=== PATIENT | female | born 1990 | race Caucasian/White ===

== ENCOUNTER 2018-07-29 10:53 | Emergency (ER) | END 2018-07-29 13:44 | disposition home or self-care (01) ==

== ENCOUNTER 2018-10-06 23:06 | Emergency (ER) | payer BC ==
[~2018-10-06] VITALS: Ht 142.2 cm; Wt 42.9 kg
[~2018-10-06 23:06] MED LIST: NO MEDS
[2018-10-06 23:09] VITALS: Ht 142.2 cm; Wt 42.9 kg
[2018-10-06] MEDS ORDERED: SOD CHLORIDE 0.9% 1,000 ML IV STA (23:48)
[2018-10-07] MEDS ORDERED: LORAZEPAM 2 MG INJ IV ONE
[2018-10-07] MEDS ORDERED: LORA-441 PO (01:35)
--- NOTE | 2018-10-07 01:40 | ERD ---
ER Documentation Chief Complaint Chief Complaint CHEST PAIN WITH PALPITATIONS; AWOKEN BY IT [id number] AGO HPI This is a 28-year-old female chest pain or palpitations. She said he was awoken by Royer severely fast heart rate. She also noticed clamminess of her hands and perioral numbness. No fevers no chills. No nausea no vomiting. Chest pain is mild to moderate electric-like across her entire chest wall with no exacerbating alleviating factors ROS All systems reviewed and are negative except as per history of present illness. Medications Home Meds Active Scripts Lorazepam* (Ativan*) 0.5 Mg Tablet, 0.5 MG PO Q8H PRN for ANXIETY, #10 TAB Prov:ELIZABETH DUBOIS 10/07/18 Reported Medications [No Meds] No Conflict Check 10/21/10 Allergies Allergies: Coded Allergies: No Known Drug Allergies (Verified Allergy, Mild, 10/21/10) PMhx/Soc Medical and Surgical Hx: pt denies Medical Hx, pt denies Surgical Hx History of Surgery: No Anesthesia Reaction: No Hx Neurological Disorder: No Hx Respiratory Disorders: No Hx Cardiac Disorders: No Hx Psychiatric Problems: No Hx Miscellaneous Medical Probl: No Hx Alcohol Use: Yes (occasional use) Hx Substance Use: No Hx Tobacco Use: No Smoking Status: Never smoker Physical Exam Vitals Vital Signs Date Temp Pulse Resp B/P (MAP) Pulse Ox O2 O2 Flow FiO2 Time Delivery Rate 10/07/18 96 18 142/105 100 Room Air 00:20 (117) 10/06/18 97.7 118 19 179/101 98 23:09 (127) Physical Exam Const: No acute distress Head: Atraumatic Eyes: Normal Conjunctiva ENT: Normal External Ears, Nose and Mouth. Neck: Full range of motion. No meningismus. Resp: Clear to auscultation bilaterally Cardio: Regular rate and rhythm, no murmurs Abd: Soft, non tender, non distended. Normal bowel sounds Skin: No petechiae or rashes Back: No midline or flank tenderness Ext: No cyanosis, or edema Neur: Awake and alert Psych: Normal Mood and Affect Result Diagram: 10/07/18 0000 10/07/18 0000 Results 24 hrs Laboratory Tests Test 10/07/18 00:00 10/07/18 00:05 10/07/18 00:12 White Blood Count 7.0 10^3/ul Red Blood Count 5.00 10^6/ul Hemoglobin 14.1 g/dl Hematocrit 42.6 % Mean Corpuscular Volume 85.2 fl Mean Corpuscular Hemoglobin 28.2 pg Mean Corpuscular 33.1 g/dl Hemoglobin Concent Red Cell Distribution Width 12.1 % Platelet Count 229 10^3/UL Mean Platelet Volume 9.5 fl Immature Granulocytes % 0.300 % Neutrophils % 60.6 % Lymphocytes % 31.9 % Monocytes % 5.7 % Eosinophils % 1.1 % Basophils % 0.4 % Nucleated Red Blood Cells % 0.0 /100WBC Immature Granulocytes # 0.020 10^3/ul Neutrophils # 4.2 10^3/ul Lymphocytes # 2.2 10^3/ul Monocytes # 0.4 10^3/ul Eosinophils # 0.1 10^3/ul Basophils # 0.0 10^3/ul Nucleated Red Blood Cells # 0.0 10^3/ul Sodium Level 143 mmol/L Potassium Level 3.7 mmol/L Chloride Level 101 mmol/L Carbon Dioxide Level 29 mmol/L Anion Gap 13 Blood Urea Nitrogen 18 mg/dl Creatinine 0.69 mg/dl Est Glomerular Filtrat > 60 mL/min Rate mL/min Glucose Level 121 mg/dl Calcium Level 9.9 mg/dl Total Bilirubin 0.3 mg/dl Direct Bilirubin 0.00 mg/dl Indirect Bilirubin 0.3 mg/dl Aspartate Amino Transf (AST/SGOT) 23 IU/L Alanine 19 IU/L Aminotransferase (ALT/SGPT) Alkaline Phosphatase 51 IU/L Troponin I < 0.012 ng/ml B-Type Natriuretic Peptide 25 PG/ML Total Protein 8.0 g/dl Albumin 4.9 g/dl Globulin 3.10 g/dl Albumin/Globulin Ratio 1.58 Thyroid Stimulating Hormone (TSH) 1.770 MIU/L Free Thyroxine Index 3.52 ug/ml Thyroxine (T4) 10.2 ug/dl Triiodothyronine (T3) Uptake 34.5 % Urine Color STRAW Urine Clarity CLEAR Urine pH 7.0 Urine Specific [place] 1.010 Urine Ketones NEGATIVE mg/dL Urine Nitrite NEGATIVE mg/dL Urine Bilirubin NEGATIVE mg/dL Urine Urobilinogen NEGATIVE mg/dL Urine Leukocyte Esterase NEGATIVE Rob/ul Urine Hemoglobin NEGATIVE mg/dL Urine Glucose NEGATIVE mg/dL Urine Total Protein NEGATIVE mg/dl POC Beta HCG, Qualitative NEGATIVE Current Medications Medications Dose Sig/Norma Start Time Status Last (Trade) Ordered Route PRN Stop Time Admin Dose Reason Admin Sodium 1,000 ml @ Q1H STAT 10/06/18 DC 10/07/18 Chloride 1,000 mls/hr IV 23:48 10/07/18 00:14 00:47 Lorazepam 1 mg ONCE ONCE 10/07/18 DC 10/07/18 (Ativan) IV 00:00 10/07/18 00:15 00:01 Procedures/MDM EKG: Rate/Rhythm: [Normal Sinus Rhythm] QRS, ST, T-waves: [No changes consistent w/ acute ischemia] Impression: [No evidence of ischemia or arrhythmia] Chest X-ray 1V Interpreted by me: Soft Tissue: No acute abnormalitie s Bones: No acute abnormalities Mediastinum/Cardiac Silhouette/Lungs: [No acute abnormalities] Medical decision making: Patient's thoracic symptoms have stabilized while in the department and are stable for outpatient follow up. Exam and work up not consistent w/ ischemia, arrhythmia, PE or dissection. Departure Diagnosis: Primary Impression: Palpitations Condition: Stable Patient Instructions: Palpitations Referrals: CHACE RODNEY MD (PCP) ELIZABETH DUBOIS Oct 07, 2018 01:39
[2018-10-07 03:14] VITALS: BP 105/63; PULSE 88; RESP 18
== END 2018-10-07 03:23 | disposition home or self-care (01) ==
LOC: E/R 23:06
DX: R00.2 Palpitations (principal)
CPT/HCPCS: 36415; 71045; 80053; 81003; 81025; 83880; 84436; 84443; 84479; 84484; 85025; 93005; 96374; J2060; J7030; Z7502

== ENCOUNTER 2018-11-21 13:13 | Emergency (ER) | payer BC ==
[~2018-11-21] VITALS: Ht 157.5 cm; Wt 55.0 kg
[2018-11-21 13:30] VITALS: Ht 157.5 cm; Wt 55.0 kg
[2018-11-21] MEDS ORDERED: PROP20TA4 PO (13:42)
[2018-11-21] MEDS ORDERED: NIFE30TA23 ORAL (13:42)
--- NOTE | 2018-11-21 13:49 | ERD ---
ER Documentation Chief Complaint Chief Complaint BIB [facility] FOR EVAL OF PALPITATIONS TODAY. HX OF PALPITATIONS. HPI 28-year-old woman brought in by EMS for palpitations, anxiety, elevated blood pressure. She states she has been using nicardipine recently although after nicardipine use she becomes anxious and she feels bad and her pressure actually goes up instead of down, she states when she would only use propranolol her blood pressure would be well controlled, but she was noncompliant with propranolol alone. After using nicardipine today for elevated blood pressure s he began feeling worse and called 911. She has had similar episodes in the past and was actually seen and evaluated here about 10 days ago, workup was negative and she was discharged to follow-up with her PMD and see her cryptographic clerk as scheduled. She has not yet seen her cryptographic clerk. For anxiety she was previously prescribed lorazepam although she states it causes too much sedation so she discontinued it. She denies suicidal homicidal ideation, no chest pain today, no shortness of breath, no loss of consciousness. Patient was transported here anxious but without further complications ROS All systems reviewed and are negative except as per history of present illness. Medications Home Meds Reported Medications Nifedipine* (Nifedipine ER*) 30 Mg Tablet.sa, 30 MG ORAL DAILY 11/21/18 Propranolol Hcl* (Propranolol Hcl*) 20 Mg Tablet, 20 MG PO DAILY, TAB 11/21/18 Allergies Allergies: Coded Allergies: No Known Drug Allergies (Verified Allergy, Mild, 11/21/18) PMhx/Soc History of Surgery: No Anesthesia Reaction: No Hx Neurological Disorder: No Hx Respiratory Disorders: No Hx Cardiac Disorders: Yes (HTN, PALPITATIONS. ) Hx Psychiatric Problems: No Hx Miscellaneous Medical Probl: No Hx Alcohol Use: No Hx Substance Use: No Hx Tobacco Use: No Smoking Status: Never smoker FmHx Family History: No diabetes Physical Exam Vitals Vital Signs Date Temp Pulse Resp B/P (MAP) Pulse Ox O2 O2 Flow FiO2 Time Delivery Rate 11/21/18 89 20 135/87 100 Room Air 16:13 (103) 11/21/18 92 16 128/99 100 Room Air 15:41 (109) 11/21/18 98 17 130/100 100 Room Air 13:41 (110) 11/21/18 97.2 110 19 159/107 99 13:30 (124) Physical Exam Const: Anxious Head: Atraumatic Eyes: Normal Conjunctiva ENT: Normal External Ears, Nose and Mouth. Neck: Full range of motion. No meningismus. Resp: Clear to auscultation bilaterally Cardio: Tachycardic, no murmurs Abd: Soft, non tender, non distended. Normal bowel sounds Skin: No petechiae or rashes Back: No midline or flank tenderness Ext: No cyanosis, or edema Neur: Awake and alert x3, no focal deficits or facial asymmetry Psych: Anxious, tearful Results 24 hrs Current Medications Medications Dose Sig/Norma Start Time Status Last (Trade) Ordered Route PRN Stop Time Admin Dose Reason Admin Sodium 1,000 ml @ Q1H STAT 11/21/18 DC 11/21/18 Chloride 1,000 mls/hr IV 14:25 15:12 11/21/18 15:24 Propranolol 20 mg ONCE ONCE 11/21/18 DC 11/21/18 HCl PO 14:30 15:24 (Inderal) 11/21/18 14:31 Procedures/MDM IV line was established patient was placed on potline monitor rhythm strip revealed a sinus tachycardia at 100 bpm with upright P and T waves. Patient was afebrile EKG performed, read by me revealed a normal sinus rhythm at 96 bpm, normal axis, narrow QRS complex, no concerning ST elevations or depressions noted I administered 1 L normal saline IV and propranolol 20 mg p.o. x1 Patient's tachycardia and initial anxiety resolved, blood pressure is within normal limits at this time. I spoke to her PMD who recommended continued outpatient management, he agreed that she has severe anxiety and may benefit from SSRI therapy although he is waiting for official cardiology consultation to begin other therapy. Differential diagnoses considered, included but not limited to acute coronary syndrome, pulmonary embolism, aortic dissection, abdominal aortic aneurysm, sepsis, stroke, meningitis, encephalitis, pneumonia, appendicitis, cholecystitis, bowel obstruction, pyelonephritis, nephrolithiasis, cystitis, as well as metabolic, hematologic, and electrolyte abnormalities. As well as abscess, cellulitis, fractures, and dislocations. Patient feels much better at this time, and vital signs are normal, symptoms have improved. I did give strict instructions to return to the ED if symptoms continue or worsen, patient will otherwise follow-up with primary care physician. Patient understood instructions and agreed to plan. Disclaimer: Inadvertent spelling and grammatical errors are likely due to EHR/dictation software use and do not reflect on the overall quality of patient care. Also, please note that the electronic time recorded on this note does not necessarily reflect the actual time of the patient encounter. Departure Diagnosis: Primary Impression: Hypertension Hypertension type: essential hypertension Qualified Codes: I10 - Essential (primary) hypertension Additional Impression: Acute anxiety Condition: BOO Elizabeth MD Nov 21, 2018 13:49
[2018-11-21] MEDS ORDERED: SOD CHLORIDE 0.9% 1,000 ML IV STA (14:25)
[2018-11-21] MEDS ORDERED: PROPRANOLOL 20 MG TAB PO ONE (14:30)
[2018-11-21 16:13] VITALS: BP 135/87; PULSE 89; RESP 20
== END 2018-11-21 16:14 | disposition home or self-care (01) ==
LOC: E/R 13:13
DX: I10 Essential (primary) hypertension (principal); F41.9 Anxiety disorder, unspecified
CPT/HCPCS: J7030; Z7502; Z7610

== ENCOUNTER 2019-01-02 12:00 | Emergency (ER) | payer SELFPAY ==
[~2019-01-02] VITALS: Ht 152.4 cm; Wt 41.3 kg
[~2019-01-02 12:00] MED LIST changes: +NIFE30TA23 ORAL; -NO MEDS; +PROP20TA4 PO
[2019-01-02 12:16] VITALS: BP 142/95; PULSE 85; RESP 20; Ht 152.4 cm; Wt 41.3 kg
== END 2019-01-02 17:09 | disposition left against medical advice (07) ==
LOC: FTE 12:00
DX: Z53.21 Procedure and treatment not carried out due to patient leaving prior to being seen by health care provider (principal)

== ENCOUNTER 2019-05-16 10:26 | Emergency (ER) | payer BC ==
[~2019-05-16] VITALS: Ht 142.2 cm; Wt 40.0 kg
[~2019-05-16 10:26] MED LIST changes: +HYDR-3029 PO
[2019-05-16 10:31] VITALS: BP 132/90; PULSE 91; RESP 18; Ht 142.2 cm; Wt 40.0 kg
== END 2019-05-16 11:58 | disposition home or self-care (01) ==
LOC: FTE 10:26
DX: F41.9 Anxiety disorder, unspecified (principal); I10 Essential (primary) hypertension
CPT/HCPCS: 36415; 80053; 81003; 81025; 85025; Z7502; 99283